=== PATIENT | male | born 1985 | race Caucasian/White ===

== ENCOUNTER 2017-08-02 21:30 | Emergency (ER) | payer OTHER ==
[2017-08-02 22:03] VITALS: BP 128/66
[2017-08-03] MEDS ORDERED: METHYLPREDNISOLONE INJ 125 MG/2 ML SDV IM ONE (00:02)
--- NOTE | 2017-08-03 00:04 | ER Document Report ---
ED Neck/Back Problem - General Mode of Arrival: Ambulatory Information source: Patient TRAVEL OUTSIDE OF THE [place] IN LAST 30 DAYS: No <RHONDA CAMERON - Last Filed: 08/03/17 02:07> <GRACIELA MOHR - Last Filed: 08/03/17 03:50> - General Chief Complaint: Back Injury Stated Complaint: BACK INJURY Time Seen by Provider: 08/02/17 23:14 Notes: Patient is a 31-year-old male who presents to the emergency department today with complaints of lower back pain. Patient states he was lifting 225 pounds when his "low back and legs felt like jelly". Patient states he has tingling in bilateral hips and arms. Patient states she took Tylenol prior to arrival which did not relieve his pain. Patient has no difficulty with ambulation. Patient denies any incontinence. (RHONDA CAMERON) - Related Data Allergies/Adverse Reactions: No Known Allergies Allergy (Unverified 08/02/17 21:33) Past Medical History - General Information source: Patient - Social History Smoking Status: Never Smoker Cigarette use (# per day): No Frequency of alcohol use: None Drug Abuse: None Lives with: Family Family History: Reviewed & Not Pertinent - Medical History Medical History: Negative Surgical Hx: Negative <RHONDA CAMERON - Last Filed: 08/03/17 02:07> Review of Systems - Review of Systems Constitutional: No symptoms reported EENT: No symptoms reported Cardiovascular: No symptoms reported Respiratory: No symptoms reported Gastrointestinal: No symptoms reported Genitourinary: No symptoms reported Male Genitourinary: No symptoms reported Musculoskeletal: See HPI, Back pain Skin: No symptoms reported Hematologic/Lymphatic: No symptoms reported Neurological/Psychological: No symptoms reported -: Yes All other systems reviewed and negative <RHONDA CAMERON - Last Filed: 08/03/17 02:07> Physical Exam - Vital signs Interpretation: Normal - General General appearance: Appears well, Alert - HEENT Head: Normocephalic, Atraumatic Eyes: Normal Pupils: PERRL - Respiratory Respiratory status: No respiratory distress Chest status: Nontender Breath sounds: Normal Chest palpation: Normal - Cardiovascular Rhythm: Regular Heart sounds: Normal auscultation Murmur: No - Abdominal Inspection: Normal Distension: No distension Bowel sounds: Normal Tenderness: Nontender Organomegaly: No organomegaly - Back Back: Normal, Tender - L1-4. No: Deformity/step-off, CVA tenderness - Extremities General upper extremity: Normal inspection, Nontender, Normal color, Normal ROM , Normal temperature General lower extremity: Normal inspection, Nontender, Normal color, Normal ROM , Normal temperature, Normal weight bearing. No: Jason's sign - Neurological Neuro grossly intact: Yes Cognition: Normal Orientation: AAOx4 [place] Coma Scale Eye Opening: Spontaneous [place] Coma Scale Verbal: Oriented [place] Coma Scale Motor: Obeys Commands [place] Coma Scale Total: 15 Speech: Normal Cerebellar coordination: No: Gait ataxia Motor strength normal: LUE, RUE, LLE, RLE Sensory: Normal - Psychological Associated symptoms: Normal affect, Normal mood - Skin Skin Temperature: Warm Skin Moisture: Dry Skin Color: Normal <GRACIELA MOHR - Last Filed: 08/03/17 03:50> - Vital signs Vitals: Temp Pulse Resp BP Pulse Ox 98.5 F 65 18 128/66 H 98 08/02/17 22:02 08/02/17 22:02 08/02/17 22:02 08/02/17 22:02 08/02/17 22:02 Course <RHONDA CAMERON - Last Filed: 08/03/17 02:07> - Diagnostic Test Radiology reviewed: Reports reviewed <GRACIELA MOHR - Last Filed: 08/03/17 03:50> - Re-evaluation Re-evalutation: 08/03/17 Patient is a 31-year-old male who is doing lifts today and hurt his low back. Patient states that he has been having intermittent paresthesias down his legs and around his abdomen. His also had pain down his legs he has not had any bowel or bladder retention or incontinence, weakness. He has full range of motion and strength. He is able to ambulate. No acute findings on x- rays. I have explained to the patient that it is possible that he has herniated a disc and explained the signs that would be concerning for him to come back including weakness, bowel or bladder dysfunction, or any other concerns. Patient will be discharged home with Medrol Dosepak, Flexeril, and pain medication as needed. Follow-up with PMD. Return if further concerns. Understands and agrees with plan. (GRACIELA MOHR) - Vital Signs Vital signs: Temp Pulse Resp BP Pulse Ox 98.5 F 65 18 128/66 H 98 08/02/17 22:02 08/02/17 22:02 08/02/17 22:02 08/02/17 22:02 08/02/17 22:02 Discharge <RHONDA CAMERON - Last Filed: 08/03/17 02:07> <GRACIELA MOHR - Last Filed: 08/03/17 03:50> - Discharge Clinical Impression: Lower back injury Qualifiers: Encounter type: initial encounter Qualified Code(s): S39.92XA - Unspecified injury of lower back, initial encounter Condition: Stable Disposition: HOME, SELF-CARE Instructions: Herniated Disc ([facility]), Ice Packs ([facility]), Low Back Pain ([facility]) Prescriptions: Cyclobenzaprine HCl [Flexeril 10 mg Tablet] 10 mg PO TIDP PRN #15 tab PRN Reason: Hydrocodone/Acetaminophen [Shingleton 5-325 mg Tablet] 1 tab PO TIDP PRN #20 tablet PRN Reason: Lidocaine [Lidoderm 5% (700 mg) Transdermal Patch] 1 patch TP DAILY #20 adh..patch Methylprednisolone [Medrol Dosepack (4 mg/Tab) 21 Tab/Dosepak] 4 mg PO ASDIR PRN #21 tab.ds.pk PRN Reason: Forms: Return to Work Scribe Documentation - Scribe Written by Scribe:: Buffy Mathis, 08/03/2017 [id number] acting as scribe for :: Fidel <RHONDA CAMERON - Last Filed: 08/03/17 02:07>
[2017-08-03] MEDS ORDERED: LIDOCAINE 5% (700 MG) TRANSDERMAL ADH..PATCH TP ONE (01:22)
--- NOTE | 2017-08-03 01:22 | RADIOLOGY REPORT (SQ) ---
EXAM DESCRIPTION: L SPINE WHOLE CLINICAL HISTORY: 31 years, Male, back injury COMPARISON: None. NUMBER OF VIEWS: 5 LIMITATIONS: None. Findings: Normal alignment and curvature. Vertebral and intervertebral heights are maintained. Extraspinal structures are grossly intact. IMPRESSION: No acute findings of L SPINE. .
[2017-08-03] MEDS ORDERED: HYDROCODONE/ACETAMINOPHEN 5-325 MG (6 TAB/ER DISP) PO PRN (01:29)
== END 2017-08-03 01:41 | disposition home or self-care (01) ==
LOC: ER 21:30 → EDBD 21:30 → ER 08-03 01:41
DX: S39.92XA Unspecified injury of lower back, initial encounter (principal); M79.606 Pain in leg, unspecified; R20.2 Paresthesia of skin; X50.0XXA Overexertion from strenuous movement or load, initial encounter; Y93.B9 Activity, other involving muscle strengthening exercises
CPT/HCPCS: 99283; 96372; 72110; J2930